=== PATIENT | female | born 1990 | race Caucasian/White ===

== ENCOUNTER 2023-12-17 06:03 | Emergency (ER) | payer OTHER, SELFPAY ==
[2023-12-17] VITALS (7 sets, daily range): BP systolic 106–175; BP diastolic 66–110; PULSE 61–96; RESP 16–20; TEMP 36.7; O2SAT 95–98; BMI 40.7
--- NOTE | 2023-12-17 06:13 | CT_ITS ---
PROCEDURE INFORMATION: Exam: CT Abdomen And Pelvis With Contrast Exam date and time: 12/17/2023 6:55 AM Age: 33 years old Clinical indication: Abdominal pain; Localized; Right upper quadrant (ruq); Additional info: Ruq pain TECHNIQUE: Imaging protocol: Computed tomography of the abdomen and pelvis with contrast. Radiation optimization: All CT scans at this facility use at least one of these dose optimization techniques: automated exposure control; mA and/or kV adjustment per patient size (includes targeted exams where dose is matched to clinical indication); or iterative reconstruction. Contrast material: ISOVUE; Contrast volume: 75 ml; Contrast route: IV; COMPARISON: No relevant prior studies available. FINDINGS: Lungs: Calcified granuloma right medial lower lobe. Liver: Severe fatty infiltrate of the liver with scattered areas of focal fatty sparing. Gallbladder and biliary ducts: Several calcified gallstones. There is no evidence of biliary ductal dilation. Pancreas: Edema and stranding fluid surrounds the pancreas. Normal enhancement of pancreatic parenchyma. Spleen: Normal. No splenomegaly. Adrenal glands: Normal. No mass. Kidneys and ureters: Normal. No hydronephrosis. Stomach and bowel: There is no evidence of intestinal perforation or obstruction. Appendix: A normal appendix is identified. Intraperitoneal space: Unremarkable. No free air. No significant fluid collection. Vasculature: Unremarkable. No abdominal aortic aneurysm. Lymph nodes: Unremarkable. No enlarged lymph nodes. Urinary bladder: Unremarkable as visualized. Reproductive: Unremarkable as visualized. Bones/joints: Multilevel Schmorl's nodes. Soft tissues: Unremarkable. IMPRESSION: 1. Acute interstitial edematous pancreatitis. 2. Severe fatty infiltrate of the liver. 3. Cholelithiasis.
--- NOTE | 2023-12-17 06:20 | HMH.EDGENADL ---
Discharge Plan Disposition Patient Disposition: Xfer Short-Term Hosp Chief Complaint: Abdominal Pain Referrals Follow up/Referrals: Helena Rodgers [Primary Care Provider] - See instructions Activity Restrictions/Add. Instructions Additional Instructions/Restrictions: Please drive immediately to [facility] in [place] for continued evaluation. They are expecting you and will admit you to their floor for continued workup and management. Clinical Impressions Clinical Impression: Acute pancreatitis, Transaminitis, Epigastric abdominal pain Instructions Patient Instructions: DI for Acute Abdominal Pain Discharge ED Provider: Mervin Sorenson General Adult HPI <Tobias Cunningham MD - Last Filed: 12/17/23 06:52> General Chief complaint: Abdominal Pain Stated complaint: severe abd,chest,back pain,nausea, shallow breaths Time Seen by Provider: 12/17/23 06:05 Mode of Arrival: Ambulatory Source of Information: Patient Limitations: No Limitations Description of Symptoms (Recalled from ER Triage Doc. by RN): Pt reported to ED with c/o of severe epigastric pain that radiates to her back that started throughout the night. Pt states she has gallstones and has attacks but can normally deal with them. Pt states she took a hot bath last night and it helped the pain for a little bit but approx [id number] the pain became unbearable. History of Present Illness HPI narrative: 33-year-old female with history of obesity presents for abdominal pain. She reports it started last night, got better after hot bath, but then worsened severely at approximately 4 AM. She reports that she has had gallbladder attacks multiple times in the past and has known gallstones. She reports she had a normal HIDA scan at some point in the past. She reports that the pain today is more severe and unrelenting and then in the past. She reports it started in the right upper quadrant and radiates to the epigastrium and left upper quadrant. Denies any fevers. History of abdominal surgery. She is not on control. Related Data Allergies Allergy/AdvReac Type Severity Reaction Status Date / Time No Known Allergies Allergy Verified 12/17/23 06:19 PFSH <Tobias Cunningham MD - Last Filed: 12/17/23 06:52> [facility] Disclaimer: The information contained in this section may have been updated after the patient was seen, as this information can be updated by other users. Social History (Updated 12/17/23 @ 06:52 by Tobias Cunningham MD) Smoking Status: Never smoker alcohol intake: never current occupational status: other Travel in the last 8 weeks: None <Tobias Cunningham MD - Last Filed: 12/17/23 06:52> ROS Obtained: Yes All systems reviewed & no additional complaints except as documented Physical Exam <Tobias Cunningham MD - Last Filed: 12/17/23 06:52> General General appearance: alert and obese Comment: Uncomfortable appearing Head Head exam: atraumatic and normocephalic Eye Eye exam: Present normal appearance, PERRL and EOMI ENT ENT exam: Present normal oropharynx and normal external ear exam Neck Neck exam: Present normal inspection and full ROM Chest Chest inspection: Present normal inspection and symmetric chest wall rise; Absent tenderness Respiratory Respiratory exam: Present normal lung sounds bilaterally; Absent respiratory distress Cardiovascular Cardiovascular exam: Present regular rate and normal rhythm Abdominal Exam Abdominal exam: Present soft and tenderness (Left upper quadrant, right upper quadrant, epigastric); Absent distention or guarding Extremities Exam Extremities exam: Present normal inspection; Absent edema or joint swelling Back Exam Back exam: Present normal inspection; Absent tenderness Neurological Exam Neurological exam: Present alert and oriented X3; Absent motor sensory deficit Psychiatric Psychiatric exam: Present normal affect and normal mood Skin Skin exam: Present warm, dry and normal color Lymphatic Lymphatic Findings: no adenopathy Medical Decision Making <Tobias Cunningham MD - Last Filed: 12/17/23 06:52> Medical Records Medical records reviewed: Yes I reviewed the patient's medical records. Will Inquiry Pt receiving controlled substance: No Will was queried for this patient: No Vital Signs: 12/17/23 06:14 12/17/23 07:21 12/17/23 07:30 Temperature 98.1 F Temperature Source Oral Pulse Rate 80 62 Pulse Rate [Left Radial] 96 H Respiratory Rate 20 Blood Pressure 123/78 113/71 Blood Pressure [Right Arm] 175/110 H Blood Pressure Mean 90 85 Blood Pressure Mean [Right Arm] 131 02 Sat by Pulse Oximetry 98 97 97 Oxygen Delivery Method Room Air 12/17/23 08:00 12/17/23 08:30 12/17/23 09:00 Temperature Temperature Source Pulse Rate 61 68 61 Pulse Rate [Left Radial] Respiratory Rate Blood Pressure 113/69 117/79 106/66 L Blood Pressure [Right Arm] Blood Pressure Mean Blood Pressure Mean [Right Arm] 02 Sat by Pulse Oximetry 95 97 97 Oxygen Delivery Method Room Air Room Air Lab Data Lab results reviewed: Yes I reviewed the patient's lab results. Lab Results 12/17/23 06:11: WBC 7.6, RBC 4.58, Hgb 14.0, Hct 42.5, MCV 92.8, MCH 30.6, MCHC 33.0, RDW 13.2, Plt Count 332, MPV 8.1, Neut % (Auto) 76.9, Lymph % (Auto) 16.4, [place] % (Auto) 5.5, Eos % (Auto) 0.8, Baso % (Auto) 0.5, Neut # (Auto) 5.9, Lymph # (Auto) 1.3, [place] # (Auto) 0.4, Eos # (Auto) 0.1, Baso # (Auto) 0.0, Sodium 137, Potassium 4.0, Chloride 107, Carbon Dioxide 25, Anion Gap 9.0, BUN 17, Creatinine 0.80, Estimated Creat Clear 172, Estimated GFR 82, Est GFR ( Amer) 99, Glucose 159 H, Calcium 9.2, Total Bilirubin 1.3, AST 609 H*, ALT 349 H*, Alkaline Phosphatase 94, Total Protein 7.6, Albumin 4.1, Globulin 3.5 H, Albumin/Globulin Ratio 1.2, Lipase 41972 H, Serum HCG, Qual Negative 12/17/23 06:11 12/17/23 06:11 Orders (Tests/Meds): ED MEDICATIONS Generic Name Dose Route Start Last Admin Trade Name Freq PRN Reason Stop Dose Admin Sodium Chloride 10 ml 12/17/23 07:02 12/17/23 07:03 Sodium Chloride 0.9% 10ml Syr (Rad Only) IV 01/16/24 07:01 10 ml NEEDED PRN Administration Maintain IV Site Discontinued Medications Generic Name Dose Route Start Last Admin Trade Name Freq PRN Reason Stop Dose Admin Acetaminophen 1,000 mg 12/17/23 06:13 12/17/23 06:22 Acetaminophen 500mg Tab PO 12/17/23 06:14 1,000 mg ONCE ONE Administration Iopamidol 75 ml 12/17/23 07:02 12/17/23 07:02 Iopamidol-370 (76%);100ml Bottle IV 12/17/23 07:03 75 ml ONCE ONE Administration Ketorolac Tromethamine 30 mg 12/17/23 06:45 12/17/23 06:50 Ketorolac 30mg/Ml Vial IV 12/17/23 06:46 30 mg ONCE ONE Administration Morphine Sulfate 4 mg 12/17/23 06:13 12/17/23 06:22 Morphine 4mg/Ml Syringe IV 12/17/23 06:14 4 mg ONCE ONE Administration Ondansetron HCl 4 mg 12/17/23 06:19 12/17/23 06:22 Ondansetron 4mg/2ml Vial IV 12/17/23 06:20 4 mg ONCE ONE Administration ORDERS Category Date Time Status CT abdomen pelvis w con Stat Cat Scan 12/17/23 06:13 Completed CBC w/Auto Diff [Complete Blood Count Auto Diff] Stat Lab 12/17/23 06:11 Completed CMP [Comprehensive Metabolic Panel] Stat Lab 12/17/23 06:11 Completed Lipase Stat Lab 12/17/23 06:11 Completed Serum [HCG Qualitative, Serum] Stat Lab 12/17/23 06:11 Completed Medical Decision Narrative: 33-year-old female with history of obesity, reported history of prior gallstones presents for worsening right upper quadrant/epigastric/left upper quadrant pain.. History was obtained via interactive discussion with patient, family. On arrival, patient is [afebrile, hemodynamically stable, satting appropriately, alert, oriented x4, GCS 15], moving all extremities spontaneously. Full physical exam performed and significant for generalized upper abdominal tenderness Differential includes but is not limited to acute cholecystitis, symptomatic cholelithiasis pancreatitis, gastroenteritis, gastritis,. Patient was given Tylenol and morphine for symptomatic management and correction of underlying abnormalities. Workup initiated including CBC CMP lipase serum CT abdomen pelvis IV contrast. Bedside ultrasound was attempted but unsuccessful secondary to body habitus. On re-evaluation, patient [remains afebrile, HD stable.] Laboratory workup independently interpreted by me and significant for []. Imaging independently interpreted by me and significant for []. See radiology read for full review of final results. EKG independently interpreted by me and significant for []. [] was considered, but deemed unnecessary due to []. Given patient history, exam and workup, patient's presentation most likely represents []. <Mervin G Sorenson, MD - Last Filed: 12/17/23 09:29> Vital Signs: 12/17/23 06:14 12/17/23 07:21 12/17/23 07:30 Temperature 98.1 F Temperature Source Oral Pulse Rate 80 62 Pulse Rate [Left Radial] 96 H Respiratory Rate 20 Blood Pressure 123/78 113/71 Blood Pressure [Right Arm] 175/110 H Blood Pressure Mean 90 85 Blood Pressure Mean [Right Arm] 131 02 Sat by Pulse Oximetry 98 97 97 Oxygen Delivery Method Room Air 12/17/23 08:00 12/17/23 08:30 12/17/23 09:00 Temperature Temperature Source Pulse Rate 61 68 61 Pulse Rate [Left Radial] Respiratory Rate Blood Pressure 113/69 117/79 106/66 L Blood Pressure [Right Arm] Blood Pressure Mean Blood Pressure Mean [Right Arm] 02 Sat by Pulse Oximetry 95 97 97 Oxygen Delivery Method Room Air Room Air Lab Data Lab Results 12/17/23 06:11: WBC 7.6, RBC 4.58, Hgb 14.0, Hct 42.5, MCV 92.8, MCH 30.6, MCHC 33.0, RDW 13.2, Plt Count 332, MPV 8.1, Neut % (Auto) 76.9, Lymph % (Auto) 16.4, [place] % (Auto) 5.5, Eos % (Auto) 0.8, Baso % (Auto) 0.5, Neut # (Auto) 5.9, Lymph # (Auto) 1.3, [place] # (Auto) 0.4, Eos # (Auto) 0.1, Baso # (Auto) 0.0, Sodium 137, Potassium 4.0, Chloride 107, Carbon Dioxide 25, Anion Gap 9.0, BUN 17, Creatinine 0.80, Estimated Creat Clear 172, Estimated GFR 82, Est GFR ( Amer) 99, Glucose 159 H, Calcium 9.2, Total Bilirubin 1.3, AST 609 H*, ALT 349 H*, Alkaline Phosphatase 94, Total Protein 7.6, Albumin 4.1, Globulin 3.5 H, Albumin/Globulin Ratio 1.2, Lipase 43045 H, Serum HCG, Qual Negative Orders (Tests/Meds): ED MEDICATIONS Generic Name Dose Route Start Last Admin Trade Name Freq PRN Reason Stop Dose Admin Sodium Chloride 10 ml 12/17/23 07:02 12/17/23 07:03 Sodium Chloride 0.9% 10ml Syr (Rad Only) IV 01/16/24 07:01 10 ml NEEDED PRN Administration Maintain IV Site Discontinued Medications Generic Name Dose Route Start Last Admin Trade Name Freq PRN Reason Stop Dose Admin Acetaminophen 1,000 mg 12/17/23 06:13 12/17/23 06:22 Acetaminophen 500mg Tab PO 12/17/23 06:14 1,000 mg ONCE ONE Administration Iopamidol 75 ml 12/17/23 07:02 12/17/23 07:02 Iopamidol-370 (76%);100ml Bottle IV 12/17/23 07:03 75 ml ONCE ONE Administration Ketorolac Tromethamine 30 mg 12/17/23 06:45 12/17/23 06:50 Ketorolac 30mg/Ml Vial IV 12/17/23 06:46 30 mg ONCE ONE Administration Morphine Sulfate 4 mg 12/17/23 06:13 12/17/23 06:22 Morphine 4mg/Ml Syringe IV 12/17/23 06:14 4 mg ONCE ONE Administration Ondansetron HCl 4 mg 12/17/23 06:19 12/17/23 06:22 Ondansetron 4mg/2ml Vial IV 12/17/23 06:20 4 mg ONCE ONE Administration ORDERS Category Date Time Status CT abdomen pelvis w con Stat Cat Scan 12/17/23 06:13 Completed CBC w/Auto Diff [Complete Blood Count Auto Diff] Stat Lab 12/17/23 06:11 Completed CMP [Comprehensive Metabolic Panel] Stat Lab 12/17/23 06:11 Completed Lipase Stat Lab 12/17/23 06:11 Completed Serum [HCG Qualitative, Serum] Stat Lab 12/17/23 06:11 Completed Medical Decision Narrative: 33-year-old female with history of obesity, reported history of prior gallstones presents for worsening right upper quadrant/epigastric/left upper quadrant pain.. History was obtained via interactive discussion with patient, family. On arrival, patient is [afebrile, hemodynamically stable, satting appropriately, alert, oriented x4, GCS 15], moving all extremities spontaneously. Full physical exam performed and significant for generalized upper abdominal tenderness Differential includes but is not limited to acute cholecystitis, symptomatic cholelithiasis pancreatitis, gastroenteritis, gastritis,. Patient was given Tylenol and morphine for symptomatic management and correction of underlying abnormalities. Workup initiated including CBC CMP lipase serum CT abdomen pelvis IV contrast. Bedside ultrasound was attempted but unsuccessful secondary to body habitus. On re-evaluation, patient [remains afebrile, HD stable.] Mervin Sorenson: I assumed care at approximately 7 AM. Patient is hemodynamically stable and resting in bed upon my assumption of care. Workup thus far reviewed by me, hematologic labs have no significant leukocytosis, transaminitis AST 609, ALT 349, significant elevated lipase over 30,000, hCG negative. CT imaging shows interstitial pancreatitis with surrounding edema and severe fatty infiltrate of the liver with associated cholelithiasis without evidence of cholecystitis or biliary ductal dilatation. The case was discussed with hospital medicine regarding management, given significant elevated transaminases and no gastroenterology at this institution it is appropriate for patient be transferred to higher level of care. The case was discussed with [facility] Dr. Yadav who graciously accepted patient for transfer for continued evaluation at this time. Given the patient remained hemodynamically stable throughout her evaluation here and had acceptable pain control patient is appropriate for transfer via POV. Procedures <Tobias Cunningham MD - Last Filed: 12/17/23 06:52> Risk/Benefits of Procedure(s) Were Explained: Yes Critical Care <Tobias Cunningham MD - Last Filed: 12/17/23 06:52> Critical Care Time Critical Care Time: No
[2023-12-17] MEDS: MORPHINE 4MG/ML SYRINGE 4 MG IV (06:22)
[2023-12-17] MEDS: ACETAMINOPHEN 500MG TAB 1000 MG PO (06:22)
[2023-12-17] MEDS: ONDANSETRON 4MG/2ML VIAL 4 MG IV (06:22)
[2023-12-17 06:24] LABS: Basophils % 0.5 % (0.1-2.0); Eosinophils # 0.1 K/mm3 (0.0-0.4); Eosinophils % 0.8 % (0.1-12.0); Hematocrit 42.5 % (37.0-47.0); Lymphocytes # 1.3 K/mm3 (0.7-4.5); Lymphocytes % 16.4 % (10-50); Mean Corpuscular Hemoglobin 30.6 pg (27.0-31.2); Mean Corpuscular Volume 92.8 fl (81-99); Mean Platelet Volume 8.1 fl (7.4-10.4); Monocytes # 0.4 K/mm3 (0.1-1.0); Monocytes % 5.5 % (1.7-9.3); Neutrophils # 5.9 K/mm3 (1.8-7.8); Neutrophils % 76.9 % (37.0-80.0); Platelet Count 332 K/mm3 (142-424); Red Blood Count 4.58 M/mm3 (4.20-5.40); Red Cell Distribution Width 13.2 % (11.5-17.5); White Blood Count 7.6 K/mm3 (4.8-10.8)
[2023-12-17 06:29] LABS: Alanine Aminotransferase 349 U/L (12-78); Albumin Level 4.1 g/dl (3.5-5.0); Albumin/Globulin Ratio 1.2 (1.1-1.8); Alkaline Phosphatase 94 U/L (38-126); Aspartate Amino Transferase 609 U/L (14-36); Bilirubin,Total 1.3 mg/dl (0.2-1.3); Blood Urea Nitrogen 17 mg/dl (7-17); Calcium 9.2 mg/dl (8.4-10.2); Carbon Dioxide 25 mmol/L (22.0-30.0); Chloride 107 mmol/L (98-107); Creatinine Clearance Estimated 172 mL/min (50-200); Estimated Glomerular Filt Rate 82 ml/min (>60); GFR (African American) 99 ML/MIN (>60); Globulin 3.5 g/dL (1.3-3.2); Glucose 159 mg/dl (74-100); Sodium 137 mmol/L (136-145); Total Protein,Serum 7.6 g/dl (6.3-8.2)
[2023-12-17 06:41] LABS: HCG Qualitative, Serum Negative (Negative)
[2023-12-17] MEDS: KETOROLAC 30MG/ML VIAL 30 MG IV (06:50)
[2023-12-17] MEDS: IOPAMIDOL-370 (76%);100ML BOTTLE 75 ML IV (07:02)
[2023-12-17] MEDS: SODIUM CHLORIDE 0.9% 10ML SYR (RAD ONLY) 10 ML IV (07:03)
--- NOTE | 2023-12-17 07:15 | PC.NURSE ---
in room talking with patient at this time.
[2023-12-17 08:06] LABS: Lipase 30468 U/L (23-300)
--- NOTE | 2023-12-17 08:11 | PC.NURSE ---
Called dilan godwin to check on CT read, it still shows Assigned . Dilan godwin is going to chat with WILFRID
--- NOTE | 2023-12-17 08:22 | PC.NURSE ---
dr pineda at bedside to update pt and
--- NOTE | 2023-12-17 08:24 | PC.NURSE ---
dr pineda speaking with dr cannon
--- NOTE | 2023-12-17 08:34 | PC.NURSE ---
CALLED [facility] FOR TRANSFER FOR GI DOCTOR
--- NOTE | 2023-12-17 09:13 | PC.NURSE ---
Dr. Sorenson s/w [facility]- Dr Ziegler
--- NOTE | 2023-12-17 09:28 | PC.NURSE ---
Pt has been accepted to [facility], they will call back with bed assignment. Called radiology for a disc.
--- NOTE | 2023-12-17 09:35 | PC.NURSE ---
Report given to BRODY Sweet at [facility].
== END 2023-12-17 09:50 | disposition short-term general hospital (02) ==
PROVIDERS: Emergency Medicine; Emergency Provider Emergency Medicine; PCP Family Medicine
DX: R10.13 Epigastric pain (principal); R10.11 Right upper quadrant pain; R10.12 Left upper quadrant pain; K85.90 Acute pancreatitis without necrosis or infection, unspecified; R74.01 Elevation of levels of liver transaminase levels; E66.9 Obesity, unspecified; Z68.41 Body mass index [BMI] 40.0-44.9, adult
CPT/HCPCS: 74177; 80053; 83690; 84703; 85025; 96374; 96375; 99285; J1885; J2270; J2405; Q9967